=== PATIENT | male | born 1945 | race Caucasian/White ===

== ENCOUNTER 2016-06-03 10:30 | Emergency (ER) | payer MEDICARE, OTHER ==
--- NOTE | 2016-06-03 11:02 | ER Document Report ---
ED Medical Screen (RME) - General Stated Complaint: RIGHT LEG PAIN, SWELLING Notes: Patient states he has been having right leg pain and swelling for several days. Area feels warm to touch. Patient has a history of DVT in the right leg. Patient denies chest pain or shortness of breath. Patient states he has also had a couple of blood clots in the lungs. I have greeted and performed a rapid initial assessment of this patient. A comprehensive ED assessment and evaluation of the patient, analysis of test results and completion of the medical decision making process will be conducted by additional ED providers. TRAVEL OUTSIDE OF THE [place] IN LAST 30 DAYS: No - Related Data Allergies/Adverse Reactions: No Known Drug Allergies Allergy (Verified 06/03/16 10:59) Past Medical History - Past Medical History Cardiac Medical History: Reports: Hx DVT, Hx Hypercholesterolemia Endocrine Medical History: Reports: Hx Diabetes Mellitus Type 2 - borderline Past Surgical History: Reports: Hx Orthopedic Surgery - bilateral knee replacement, right rotator cuff - Immunizations Immunizations up to date: Yes Hx Diphtheria, Pertussis, Tetanus Vaccination: Yes Physical Exam - Vital signs Vitals: Temp Pulse Resp BP Pulse Ox 98.3 F 72 18 135/57 H 96 06/03/16 10:55 06/03/16 10:55 06/03/16 10:55 06/03/16 10:55 06/03/16 10:55 - Skin Notes: Mild warmth noted to right lateral lower leg, tender bulging vein medial right lower leg. Course - Vital Signs Vital signs: Temp Pulse Resp BP Pulse Ox 98.3 F 72 18 135/57 H 96 06/03/16 10:55 06/03/16 10:55 06/03/16 10:55 06/03/16 10:55 06/03/16 10:55
[2016-06-03 11:27] LABS: ABSOLUTE EOSINOPHILS # (AUTO) 0.1 10^3/uL (0.0-0.6); ABSOLUTE LYMPHOCYTES (AUTO) 2.2 10^3/uL (0.5-4.7); ABSOLUTE MONOCYTES (AUTO) 0.5 10^3/uL (0.1-1.4); ABSOLUTE NEUT (AUTO) 3.5 10^3/uL (1.7-8.2); BASOPHILS % (AUTO) 0.3 % (0-2); EOSINOPHILS % (AUTO) 1.7 % (0-6); HEMATOCRIT 36.2 % (37.9-51.0); HEMOGLOBIN 12.4 g/dL (13.5-17.0); LYMPHOCYTES % (AUTO) 34.3 % (13-45); MEAN CORPUSCULAR HEMOGLOBIN 32.1 pg (27.0-33.4); MEAN CORPUSCULAR HGB CONC 34.2 g/dL (32.0-36.0); MEAN CORPUSCULAR VOLUME 94 fl (80-97); MONOCYTES % (AUTO) 8.4 % (3-13); RED BLOOD COUNT 3.86 10^6/uL (4.35-5.55); RED CELL DISTRIBUTION WIDTH 13.7 % (11.5-14.0); SEGMENTED NEUTROPHILS % (AUTO) 55.3 % (42-78); WHITE BLOOD COUNT 6.4 10^3/uL (4.0-10.5)
[2016-06-03 11:36] LABS: PROTHROMBIN TIME 12.8 SEC (11.4-15.4)
[2016-06-03 11:38] LABS: D-DIMER 1.29 ug/mL (0.00-0.50)
[2016-06-03 11:48] LABS: ALANINE AMINOTRANSFERASE 26 U/L (21-72); ALBUMIN 3.7 g/dL (3.5-5.0); ALKALINE PHOSPHATASE 86 U/L (38-126); ANION GAP 9 (5-19); ASPARTATE AMINO TRANSFERASE 34 U/L (17-59); BILIRUBIN,DIRECT 0.1 mg/dL (0.0-0.4); BILIRUBIN,TOTAL 0.6 mg/dL (0.2-1.3); BLOOD UREA NITROGEN 15 mg/dL (7-20); CALCIUM 9.2 mg/dL (8.4-10.2); CARBON DIOXIDE 29 mmol/L (22-30); CHLORIDE 105 mmol/L (98-107); CREATININE RESULT 0.62 mg/dL (0.52-1.25); GLUCOSE 160 mg/dL (75-110); SODIUM 142.5 mmol/L (137-145); TOTAL PROTEIN 6.2 g/dL (6.3-8.2)
--- NOTE | 2016-06-03 13:34 | ER Document Report ---
ED General - General Chief Complaint: Leg Pain Stated Complaint: RIGHT LEG PAIN, SWELLING Mode of Arrival: Ambulatory Information source: Patient Notes: 70-year-old male history of DVT presents with complaints of right lower extremity edema. Patient denies any fevers or chills nausea vomiting or diarrhea. Patient notes that his right anterior tibial area has felt warm. Patient denies any chest pain shortness breath difficult to breathing. Patient was concerned about blood clots TRAVEL OUTSIDE OF THE [place] IN LAST 30 DAYS: No - HPI Onset: Last week Onset/Duration: Persistent Quality of pain: Burning Severity: Mild Pain Level: 1 Associated symptoms: Leg swelling, Other Exacerbated by: Denies Relieved by: Denies Similar symptoms previously: Yes Recently seen / treated by doctor: Yes - Related Data Allergies/Adverse Reactions: No Known Drug Allergies Allergy (Verified 06/03/16 10:59) Past Medical History - Social History Smoking Status: Unknown if Ever Smoked Cigarette use (# per day): Yes Chew tobacco use (# tins/day): No Smoking Education Provided: No Frequency of alcohol use: None Drug Abuse: None Family History: Reviewed & Not Pertinent - Past Medical History Cardiac Medical History: Reports: Hx DVT, Hx Hypercholesterolemia Endocrine Medical History: Reports: Hx Diabetes Mellitus Type 2 - borderline Renal/ Medical History: Denies: Hx Peritoneal Dialysis Past Surgical History: Reports: Hx Orthopedic Surgery - bilateral knee replacement, right rotator cuff - Immunizations Immunizations up to date: Yes Hx Diphtheria, Pertussis, Tetanus Vaccination: Yes Review of Systems - Review of Systems Notes: REVIEW OF SYSTEMS: CONSTITUTIONAL : Denies fever, chills, or sweats. Denies recent illness. EENT: Denies eye, ear, throat, or mouth pain or symptoms. Denies nasal or sinus congestion or discharge. Denies throat, tongue, or mouth swelling or difficulty swallowing. CARDIOVASCULAR: Denies chest pain. Denies palpitations or racing or irregular heart beat. Denies ankle edema. RESPIRATORY: Denies cough, cold, or chest congestion. Denies shortness of breath, difficulty breathing, or wheezing. GASTROINTESTINAL: Denies abdominal pain or distention. Denies nausea, vomiting , or diarrhea. Denies blood in vomitus, stools, or per rectum. Denies black, tarry stools. Denies constipation. GENITOURINARY: Denies difficulty urinating, painful urination, burning, frequency, blood in urine, or discharge. FEMALE GENITOURINARY: Denies vaginal bleeding, heavy or abnormal periods, irregular periods. Denies vaginal discharge or odor. MUSCULOSKELETAL: Admits to right leg ankle swelling SKIN: Denies rash, lesions or sores. HEMATOLOGIC : Denies easy bruising or bleeding. LYMPHATIC: Denies swollen, enlarged glands. NEUROLOGICAL: Denies confusion or altered mental status. Denies passing out or loss of consciousness. Denies dizziness or lightheadedness. Denies headache. Denies weakness or paralysis or loss of use of either side. Denies problems with gait or speech. Denies sensory loss, numbness, or tingling. Denies seizures. PSYCHIATRIC: Denies anxiety or stress. Denies depression, suicidal ideation, or homicidal ideation. ALL OTHER SYSTEMS REVIEWED AND NEGATIVE. Dictation was performed using [employer] voice recognition software PHYSICAL EXAMINATION: GENERAL: Well-appearing, well-nourished and in no acute distress. HEAD: Atraumatic, normocephalic. EYES: Pupils equal round and reactive to light, extraocular movements intact, sclera anicteric, conjunctiva are normal. ENT: Nares patent, oropharynx clear without exudates. Moist mucous membranes. NECK: Normal range of motion, supple without lymphadenopathy LUNGS: Breath sounds clear to auscultation bilaterally and equal. No wheezes rales or rhonchi. HEART: Regular rate and rhythm without murmurs ABDOMEN: Soft, nontender, nondistended abdomen. No guarding, no rebound. No masses appreciated. Musculoskeletal: Normal range of motion, no pitting or edema. No cyanosis. NEUROLOGICAL: Cranial nerves grossly intact. Normal speech, normal gait. Normal sensory, motor exams PSYCH: Normal mood, normal affect. SKIN: Warm, Dry, normal turgor, no rashes or lesions noted. Physical Exam - Vital signs Vitals: Temp Pulse Resp BP Pulse Ox 98.3 F 72 18 135/57 H 96 06/03/16 10:55 06/03/16 10:55 06/03/16 10:55 06/03/16 10:55 06/03/16 10:55 Course - Re-evaluation Re-evalutation: 06/03/16 19:49 Doppler was negative, patient given a vascular surgeon for follow-up otherwise patient is stable for discharge After performing a Medical Screening Examination, I estimate there is LOW risk for ACUTE CORONARY SYNDROME, RESPIRATORY FAILURE, SEPSIS OR MENINGITIS, thus I consider the discharge disposition reasonable. The patient and I have discussed the diagnosis and risks, and we agree with discharging home with close follow- up. We also discussed returning to the Emergency Department immediately if new or worsening symptoms occur. We have discussed the symptoms which are most concerning (e.g., changing or worsening pain, trouble swallowing or breathing, neck stiffness, fever) that necessitate immediate return. - Vital Signs Vital signs: Temp Pulse Resp BP Pulse Ox 98.3 F 71 16 128/62 H 99 06/03/16 10:55 06/03/16 13:52 06/03/16 13:52 06/03/16 13:52 06/03/16 13:52 - Laboratory Result Diagrams: 06/03/16 11:10 06/03/16 11:10 Laboratory results interpreted by me: 06/03/16 06/03/16 06/03/16 11:10 11:10 11:10 RBC 3.86 L Hgb 12.4 L Hct 36.2 L D-Dimer 1.29 H Glucose 160 H Total Protein 6.2 L - Diagnostic Test Radiology reviewed: Image reviewed, Reports reviewed - Report given to patient Discharge - Discharge Clinical Impression: Venous insufficiency, Right leg pain Condition: Stable Disposition: HOME, SELF-CARE Instructions: Leg Pain Nonspecific ([facility]) Referrals: THOR CASILLAS MD [ACTIVE STAFF] - Follow up tomorrow
[2016-06-03 13:53] VITALS: BP 128/62
== END 2016-06-03 13:52 | disposition home or self-care (01) ==
LOC: ER 10:30
DX: I87.2 Venous insufficiency (chronic) (peripheral) (principal); M79.604 Pain in right leg; M79.89 Other specified soft tissue disorders; R60.0 Localized edema
CPT/HCPCS: 36415; 80053; 85025; 85379; 85610; 93971; 99284

== ENCOUNTER → 2016-06-27 | Outpatient (CLI) | payer MEDICARE, OTHER ==
--- NOTE | 2016-06-27 12:13 | XCELERA REPORT ---
[address] [address] Lower Extremity Arterial Evaluation Name: CT RUELAS Hamilton Age: 70 yrs Gender: Male : 1945 Patient Status: Outpatient Patient Location: [facility] Study Date: 06/27/2016 09:01 AM Procedure: A color flow and duplex scan of the lower extremity arteries was performed bilaterally with velocity and waveform anaylsis. Reason For Study: PVD Ordering Physician: THOR RIDLEY Performed By: Chalino Field Right Side Arterial Evaluation Normal velocity and triphasic waveforms noted from the Common Femoral artery to the Popliteal artery. Then biphasic with well preserved velocity, crisp waveform to the infrageniculate vessels. 0-19% stenosis at the infrageniculate level. Ankle Brachial index is 1.23. Left Side Arterial Evaluation Normal velocity and triphasic waveforms noted from the Common Femoral artery to the Femoral artery. Then biphasic with well preserved velocity, crisp waveform to the infrageniculate vessels. 0-19% stenosis at the Popliteal level. Ankle Brachial index is 1.31. Interpretation Summary Mild hemodynamically significant lesions in the bilateral lower extremities, on duplex imaging, at rest. : THOR RIDLEY > Thor Ridley
--- NOTE | 2016-06-27 12:20 | XCELERA REPORT ---
[address] [address] Lower Extremity Venous Evaluation Name: CT RUELAS Age: 70 yrs Gender: Male : 1945 Patient Status: Outpatient Patient Location: Study Date: 06/27/2016 09:16 AM Procedure: A bilateral duplex scan of the lower extremity veins was performed. The evaluation included responses to compression and other maneuvers with patient in the supine and standing positions to assess venous insufficiency. Reason For Study: VARICOSE VEINS Ordering Physician: THOR RIDLEY Performed By: Chalino Field Right Sided Venous Evaluation Deep venous system evaluation shows patent veins with significant reflux identified. 4.4 second reflux in the CFV, 4.5 seconds reflux in the Popliteal vein. Sapheno Femoral junction:no reflux. Greater Saphenous vein, Proximal thigh: reflux: no reflux. Greater Saphenous vein, mid thigh: reflux: no reflux. Greater Saphenous vein, Distal thigh: reflux: no reflux. Greater Saphenous vein, Proximal below knee: reflux: none Greater Saphenous vein, Mid below knee: reflux: none. Greater Saphenous vein, Distal below knee: reflux: 3 seconds, 3 mm diameter. Short Saphenous vein: 5.6 second reflux, 6 mm. No significant Perforators identified. Left Sided Venous Evaluation Deep venous system evaluation shows patent veins with significant reflux identified.noreflux in the CFV, 3.4 seconds reflux in the Popliteal vein. Sapheno Femoral junction:no reflux. Greater Saphenous vein, Proximal thigh: reflux: 3.7 seconds, 5 mm diameter. Greater Saphenous vein, mid thigh: reflux: no reflux. Greater Saphenous vein, Distal thigh: reflux: no reflux. Greater Saphenous vein, Proximal below knee: reflux: 3.4 seconds, 4 mm diameter. Greater Saphenous vein, Mid below knee: reflux: 4.5 seconds, 4 mm diameter. Greater Saphenous vein, Distal below knee: reflux: 4.2 seconds, 3 mm diameter. No significant Perforators identified. Interpretation Summary No duplex evidence of DVT or obstruction in the bilateral lower extremities. Bilateral deep and superficial reflux, as noted. : THOR RIDLEY > Thor Ridley
== END ==
LOC: SP 08:13
PROVIDERS: ATTEND Surgery
DX: I73.9 Peripheral vascular disease, unspecified (principal); I83.811 Varicose veins of right lower extremity with pain
CPT/HCPCS: 93925; 93970

== ENCOUNTER 2016-07-01 15:16 | Emergency (ER) | payer MEDICARE, OTHER ==
--- NOTE | 2016-07-01 16:18 | ER Document Report ---
ED Medical Screen (RME) - General Chief Complaint: Foot Pain Stated Complaint: FOOT PAIN Notes: 70-year-old male patient reports cutting the right ball of his foot on porcelain when changing the toilet. He reports today there was some redness and tenderness and swelling in the region of the laceration. He took an amoxicillin he had at home this morning. He does have diabetes and some venous insufficiency. I have greeted and performed a rapid initial assessment of this patient. A comprehensive ED assessment and evaluation of the patient, analysis of test results and completion of the medical decision making process will be conducted by additional ED providers. TRAVEL OUTSIDE OF THE [place] IN LAST 30 DAYS: No - Related Data Allergies/Adverse Reactions: No Known Drug Allergies Allergy (Verified 07/01/16 15:55) Past Medical History - Past Medical History Cardiac Medical History: Reports: Hx DVT, Hx Hypercholesterolemia Endocrine Medical History: Reports: Hx Diabetes Mellitus Type 2 - borderline Renal/ Medical History: Denies: Hx Peritoneal Dialysis Past Surgical History: Reports: Hx Orthopedic Surgery - bilateral knee replacement, right rotator cuff - Immunizations Immunizations up to date: Yes Hx Diphtheria, Pertussis, Tetanus Vaccination: Yes Physical Exam - Vital signs Vitals: Temp Pulse Resp BP Pulse Ox 98.5 F 95 18 141/70 H 94 07/01/16 15:21 07/01/16 15:21 07/01/16 15:21 07/01/16 15:21 07/01/16 15:21 Course - Vital Signs Vital signs: Temp Pulse Resp BP Pulse Ox 98.5 F 95 18 141/70 H 94 07/01/16 15:21 07/01/16 15:21 07/01/16 15:21 07/01/16 15:21 07/01/16 15:21
--- NOTE | 2016-07-01 17:16 | ER Document Report ---
HPI - HPI Patient complains to provider of: LACERATION RIGHT FOOT Onset: Other - MONDAY Onset/Duration: Sudden Quality of pain: Throbbing Severity: Moderate Pain Level: 3 Context: Patient stepped on a piece of porcelain trying to turn commode water off Monday evening. Bleeding controlled. Associated Symptoms: None Exacerbated by: Walking Relieved by: Remaining still Similar symptoms previously: No Recently seen / treated by doctor: No - ROS ROS below otherwise negative: Yes Systems Reviewed and Negative: Yes All other systems reviewed and negative - CONSTITUTIONAL Constitutional: DENIES: Fever - EENT EENT: DENIES: Congestion - NEURO Neurology: DENIES: Headache - CARDIOVASCULAR Cardiovascular: DENIES: Chest pain - RESPIRATORY Respiratory: DENIES: Trouble Breathing - GASTROINTESTINAL Gastrointestinal: DENIES: Abdominal Pain - URINARY Urinary: DENIES: Dysuria - MUSCULOSKELETAL Musculoskeletal: REPORTS: Extremity pain - BOTTOM OF RIGHT FOOT - DERM Skin Color: Normal, Flushed Skin Problems: Laceration - BOTTOM OF RIGHT FOOT Past Medical History - General Information source: Patient - Social History Smoking Status: Never Smoker Chew tobacco use (# tins/day): No Frequency of alcohol use: None Drug Abuse: None Lives with: Spouse/Significant other Family History: Reviewed & Not Pertinent Patient has suicidal ideation: No Patient has homicidal ideation: No - Past Medical History Cardiac Medical History: Reports: Hx DVT, Hx Hypercholesterolemia Endocrine Medical History: Reports: Hx Diabetes Mellitus Type 2 - borderline Renal/ Medical History: Denies: Hx Peritoneal Dialysis Past Surgical History: Reports: Hx Orthopedic Surgery - bilateral knee replacement, right rotator cuff - Immunizations Immunizations up to date: Yes Hx Diphtheria, Pertussis, Tetanus Vaccination: Yes Vertical Provider Document - CONSTITUTIONAL Agree With Documented VS: Yes Exam Limitations: No Limitations General Appearance: WD/WN, No Apparent Distress - INFECTION CONTROL TRAVEL OUTSIDE OF THE [place] IN LAST 30 DAYS: No - HEENT HEENT: Atraumatic, Normocephalic - RESPIRATORY Respiratory: Breath Sounds Normal, No Respiratory Distress O2 Sat by Pulse Oximetry: 94 - CARDIOVASCULAR Cardiovascular: Regular Rate, Regular Rhythm - MUSCULOSKELETAL/EXTREMETIES Musculoskeletal/Extremeties: MAEW, Tender - BASE OF RIGHT GREAT TOE/BALL OF FOOT , No Edema - NEURO Level of Consciousness: Awake, Alert, Appropriate - DERM Integumentary: Warm, Dry, Laceration Notes: V-shaped, avulsed laceration already in the healing process noted to karson brunner right foot under the right great toe. No signs and symptoms of infection. Tender to touch. Neurovascular and sensation is intact to toe. Able to move all toes without difficulty. Course - Re-evaluation Re-evalutation: 07/01/16 17:16 X-ray negative for fracture or foreign body and discussed with patient. 07/01/16 17:21 Wound cleansed with soap and water, bacitracin and nonstick dressing applied. - Vital Signs Vital signs: Temp Pulse Resp BP Pulse Ox 98.5 F 95 18 141/70 H 94 07/01/16 15:21 07/01/16 15:21 07/01/16 15:21 07/01/16 15:21 07/01/16 15:21 Discharge - Discharge Clinical Impression: Laceration of right foot excluding toes without complication Qualifiers: Encounter type: initial encounter Qualified Code(s): S91.311A - Laceration without foreign body, right foot, initial encounter Condition: Good Disposition: HOME, SELF-CARE Instructions: Antibiotic Ointment Protection ([facility]), Soap Cleansing ([facility]), Prophylactic Antibiotic ([facility]), Laceration Care ([facility]) Additional Instructions: Keep wound clean and dry. Do not put Betadine on the wound, but apply bacitracin and nonstick dressing. Follow-up with ear primary care doctor on Monday for recheck. Take antibiotics as prescribed. Return as needed. Prescriptions: Cephalexin [Cephalexin 500 MG Capsule] 1 cap PO QID #28 capsule
[2016-07-01 18:22] VITALS: BP 145/82
== END 2016-07-01 18:21 | disposition home or self-care (01) ==
LOC: ER 15:16
DX: S91.311A Laceration without foreign body, right foot, initial encounter (principal); W22.8XXA Striking against or struck by other objects, initial encounter; Y92.002 Bathroom of unspecified non-institutional (private) residence as the place of occurrence of the external cause; E78.00 Pure hypercholesterolemia, unspecified; E11.9 Type 2 diabetes mellitus without complications; Z86.718 Personal history of other venous thrombosis and embolism; Z96.653 Presence of artificial knee joint, bilateral
CPT/HCPCS: 99283

== ENCOUNTER 2017-03-22 13:32 | Emergency (ER) | payer MEDICARE, OTHER ==
[2017-03-22] MEDS ORDERED: LIDOCAINE 5% (700 MG) TRANSDERMAL ADH..PATCH TP ONE (14:37)
--- NOTE | 2017-03-22 14:39 | ER Document Report ---
HPI - HPI Patient complains to provider of: fall, rib injury Onset: Other - 2 days ago Onset/Duration: Persistent, Better Quality of pain: Achy Pain Level: 2 Context: Patient states that he was working on his bed frame in his house and slipped landing on his left lateral side on his ribs. Patient states that he has had left rib tenderness since the fall. Patient denies having any pain prior to the fall. Patient states the pain has gradually been getting better over the past several days although has not completely resolved. Patient denies any dyspnea nausea, or vomiting. Patient denies any back pain. Patient without any abdominal tenderness. Patient denies any head injury. Associated Symptoms: Chest pain - Left rib tenderness. denies: Body/muscle aches, Nonproductive cough, Productive cough, Fever, Shortness of breath Exacerbated by: Movement Relieved by: Remaining still Similar symptoms previously: No Recently seen / treated by doctor: No - ROS ROS below otherwise negative: Yes Systems Reviewed and Negative: Yes All other systems reviewed and negative - CONSTITUTIONAL Constitutional: DENIES: Fever, Chills - NEURO Neurology: DENIES: Weakness - CARDIOVASCULAR Cardiovascular: REPORTS: Chest pain - RESPIRATORY Respiratory: DENIES: Trouble Breathing, Coughing - GASTROINTESTINAL Gastrointestinal: DENIES: Abdominal Pain, Nausea, Patient vomiting - URINARY Urinary: DENIES: Dysuria - MUSCULOSKELETAL Musculoskeletal: DENIES: Extremity pain, Back Pain, Neck Pain - DERM Skin Color: Normal Skin Problems: None Past Medical History - General Information source: Patient - Social History Smoking Status: Former Smoker Chew tobacco use (# tins/day): No Frequency of alcohol use: None Drug Abuse: None Occupation: Retired Family History: Reviewed & Not Pertinent Patient has suicidal ideation: No Patient has homicidal ideation: No - Past Medical History Cardiac Medical History: Reports: Hx DVT, Hx Hypercholesterolemia Endocrine Medical History: Reports: Hx Diabetes Mellitus Type 2 - borderline Renal/ Medical History: Denies: Hx Peritoneal Dialysis Past Surgical History: Reports: Hx Coronary Artery Bypass Graft, Hx Orthopedic Surgery - bilateral knee replacement, right rotator cuff - Immunizations Immunizations up to date: Yes Hx Diphtheria, Pertussis, Tetanus Vaccination: Yes Vertical Provider Document - CONSTITUTIONAL Agree With Documented VS: Yes Exam Limitations: No Limitations General Appearance: WD/WN, No Apparent Distress - INFECTION CONTROL TRAVEL OUTSIDE OF THE [place] IN LAST 30 DAYS: No - HEENT HEENT: Atraumatic, Normocephalic - NECK Neck: Normal Inspection, Supple. negative: Lymphadenopathy-Left, Lymphadenopathy-Right - RESPIRATORY Respiratory: Breath Sounds Normal, No Respiratory Distress. negative: Chest Non -Tender - Left lateral rib tenderness, no crepitus, no subcutaneous emphysema, Rales, Rhonchi, Wheezing - CARDIOVASCULAR Cardiovascular: Regular Rate, Regular Rhythm, No Murmur Pulses: Normal: Radial - GI/ABDOMEN Gastrointestinal: Abdomen Soft, Abdomen Non-Tender, No Organomegaly - BACK Back: Normal Inspection. negative: CVA Tenderness-Right, CVA Tenderness-Left - MUSCULOSKELETAL/EXTREMETIES Musculoskeletal/Extremeties: RACHELLE HERNANDEZ - NEURO Level of Consciousness: Awake, Alert, Appropriate Motor/Sensory: No Motor Deficit - DERM Integumentary: Warm, Dry, No Rash Course - Re-evaluation Re-evalutation: 03/22/17 16:[address] Bose who recommends adding on labs including cardiac enzyme testing. Reviewed patient's EKG. 03/22/17 17:30 Patient denies any rib tenderness at this time. Patient states that topical lidocaine patch resolved his pain. Patient does have reproducible chest wall tenderness with palpation of left lateral sixth rib area. Consulted with Dr. Bose regarding patient's cardiac enzyme test results. Recommends repeating cardiac enzymes at 7 PM. Does not recommend any advanced CT imaging of chest area at this time. Patient without any back pain or dyspnea symptoms. Pt took aspirin 325 mg at home prior to arrival. 03/22/17 17:48 Patient resting comfortably, continues to deny any tenderness. Patient again states that lidocaine topical patch completely resolved his pain symptoms. 03/22/17 20:24 Patient with indeterminate elevated troponin on repeat draw. Discussed results with Dr. Bose. Patient without any previous cardiac testing here to compare results with today. Dr. Bose advises having patient follow up with his refining equipment operator tomorrow for recheck and advises discharge at this time. Dr Bose does not feel that patient is having any ACS or ID at this time and recommends follow-up on an outpatient basis with his refining equipment operator. Discussed treatment options with patient, offered to speak with hospitalist for possible admission to definitively rule out any cardiac source for his indeterminate troponin elevation. Patient states that he prefers to be discharged tonight and does not want to stay for any additional testing. Patient reports that he will follow-up with his primary doctor as well as his refining equipment operator. Patient plans to buy topical lidocaine patches to treat his pain symptoms as this seemed to help his symptoms effectively tonight. Patient encouraged to return immediately for any new or worsening symptoms, or if he would like to continue with his diagnostic evaluation. 03/22/17 20:29 Patient within erroneously recorded blood pressure in the 60s systolically, blood pressure rechecked, patient not hypotensive. - Laboratory Result Diagrams: 03/22/17 16:35 03/22/17 16:35 Laboratory results interpreted by me: 03/22/17 20:24 Labs- Entire Visit 03/22/17 03/22/17 03/22/17 16:35 16:35 16:35 WBC 7.5 RBC 4.40 Hgb 13.7 Hct 40.7 MCV 92 MCH 31.2 MCHC 33.7 RDW 15.5 H Plt Count 190 Seg Neutrophils % 49.8 Lymphocytes % 39.2 Monocytes % 8.4 Eosinophils % 2.2 Basophils % 0.4 Absolute Neutrophils 3.7 Absolute Lymphocytes 2.9 Absolute Monocytes 0.6 Absolute Eosinophils 0.2 Absolute Basophils 0.0 Sodium 141.5 Potassium 4.2 Chloride 105 Carbon Dioxide 27 Anion Gap 10 BUN 18 Creatinine 0.78 Est GFR ( Amer) > 60 Est GFR (Non-Af Amer) > 60 Glucose 82 Calcium 9.4 Total Bilirubin 0.6 Direct Bilirubin 0.2 Neonat Total Bilirubin Not Reportable Neonat Direct Bilirubin Not Reportable Neonat Indirect Bili Not Reportable AST 40 ALT 34 Alkaline Phosphatase 85 Creatine Kinase 330 H CK-MB (CK-2) 7.43 H Troponin I 0.061 Total Protein 6.3 Albumin 3.8 03/22/17 03/22/17 18:55 18:55 WBC RBC Hgb Hct MCV MCH MCHC RDW Plt Count Seg Neutrophils % Lymphocytes % Monocytes % Eosinophils % Basophils % Absolute Neutrophils Absolute Lymphocytes Absolute Monocytes Absolute Eosinophils Absolute Basophils Sodium Potassium Chloride Carbon Dioxide Anion Gap BUN Creatinine Est GFR ( Amer) Est GFR (Non-Af Amer) Glucose Calcium Total Bilirubin Direct Bilirubin Neonat Total Bilirubin Neonat Direct Bilirubin Neonat Indirect Bili AST ALT Alkaline Phosphatase Creatine Kinase 306 H CK-MB (CK-2) 7.36 H Troponin I 0.062 Total Protein Albumin - Diagnostic Test Radiology reviewed: Reports reviewed Discharge - Discharge Clinical Impression: Rib injury, Chest wall pain, Elevated troponin Condition: Stable Disposition: HOME, SELF-CARE Instructions: Acetaminophen, Chest Wall Pain ([facility]), Chest Pain of Unclear Cause ([facility]) Additional Instructions: Return immediately for any new or worsening symptoms or call 911 if your symptoms become severe Followup with your primary care provider, call tomorrow to make a followup appointment Follow-up with your refining equipment operator, call their office tomorrow for follow-up You may use [id number] lidocaine patches topically to the tender area Referrals: SNEHA GREGORY MD [Primary Care Provider] - Follow up as needed ASTRID WARD PA [PHYSICIAN PEN MAKER] - Follow up tomorrow ALEXANDRA ORLANDO MD [NO LOCAL MD] - Follow up tomorrow
--- NOTE | 2017-03-22 16:44 | RADIOLOGY REPORT (SQ) ---
EXAM DESCRIPTION: RIBS LEFT W/PA CHEST COMPLETED DATE/TIME: 03/22/2017 4:22 pm REASON FOR STUDY: fall, lat rib pain COMPARISON: None. TECHNIQUE: Frontal view of the chest and additional views of the left ribs acquired. NUMBER OF VIEWS: Five view. LIMITATIONS: None. FINDINGS: FRONTAL CXR: No pneumothorax. No pleural effusion. No atelectasis or infiltrates. RIBS: No displaced rib fractures. No lytic or blastic bony lesions. OTHER: No other significant finding. IMPRESSION: NO PNEUMOTHORAX. NO DISPLACED RIB FRACTURES. COMMENT: SITE OF TRAUMA/COMPLAINT MARKED/STAMP COMPLETED: NO. TECHNICAL DOCUMENTATION: JOB ID: [id number] [employer]- All Rights Reserved
[2017-03-22 16:51] LABS: ABSOLUTE EOSINOPHILS # (AUTO) 0.2 10^3/uL (0.0-0.6); ABSOLUTE LYMPHOCYTES (AUTO) 2.9 10^3/uL (0.5-4.7); ABSOLUTE MONOCYTES (AUTO) 0.6 10^3/uL (0.1-1.4); ABSOLUTE NEUT (AUTO) 3.7 10^3/uL (1.7-8.2); BASOPHILS % (AUTO) 0.4 % (0-2); EOSINOPHILS % (AUTO) 2.2 % (0-6); HEMATOCRIT 40.7 % (37.9-51.0); HEMOGLOBIN 13.7 g/dL (13.5-17.0); LYMPHOCYTES % (AUTO) 39.2 % (13-45); MEAN CORPUSCULAR HEMOGLOBIN 31.2 pg (27.0-33.4); MEAN CORPUSCULAR HGB CONC 33.7 g/dL (32.0-36.0); MEAN CORPUSCULAR VOLUME 92 fl (80-97); MONOCYTES % (AUTO) 8.4 % (3-13); PLATELET COUNT 190 10^3/uL (150-450); RED CELL DISTRIBUTION WIDTH 15.5 % (11.5-14.0); SEGMENTED NEUTROPHILS % (AUTO) 49.8 % (42-78); TOTAL CELLS COUNTED % (AUTO) 100 %; WHITE BLOOD COUNT 7.5 10^3/uL (4.0-10.5)
[2017-03-22 17:09] LABS: ALANINE AMINOTRANSFERASE 34 U/L (21-72); ALBUMIN 3.8 g/dL (3.5-5.0); ALKALINE PHOSPHATASE 85 U/L (38-126); ANION GAP 10 (5-19); ASPARTATE AMINO TRANSFERASE 40 U/L (17-59); BILIRUBIN,DIRECT 0.2 mg/dL (0.0-0.4); BILIRUBIN,TOTAL 0.6 mg/dL (0.2-1.3); BLOOD UREA NITROGEN 18 mg/dL (7-20); CALCIUM 9.4 mg/dL (8.4-10.2); CARBON DIOXIDE 27 mmol/L (22-30); CHLORIDE 105 mmol/L (98-107); CREATINE KINASE 330 U/L (55-170); GLUCOSE 82 mg/dL (75-110); POTASSIUM 4.2 mmol/L (3.6-5.0); SODIUM 141.5 mmol/L (137-145); TOTAL PROTEIN 6.3 g/dL (6.3-8.2)
[2017-03-22 17:21] LABS: CREATINE KINASE MB 7.43 ng/mL (<4.55)
[2017-03-22 17:23] LABS: TROPONIN I 0.061 ng/mL
--- NOTE | 2017-03-22 18:30 | EKG REPORT ---
SEVERITY:- ABNORMAL ECG - SINUS RHYTHM RBBB AND LAFB : Confirmed by: Jeffrey Leonard MD 22-Mar-2017 18:29:59
[2017-03-22 19:37] LABS: CREATINE KINASE MB 7.36 ng/mL (<4.55); TROPONIN I 0.062 ng/mL
[2017-03-22 20:52] VITALS: BP 129/77
== END 2017-03-22 20:58 | disposition home or self-care (01) ==
LOC: ER 13:32
DX: S29.9XXA Unspecified injury of thorax, initial encounter (principal); W01.190A Fall on same level from slipping, tripping and stumbling with subsequent striking against furniture, initial encounter; Y93.89 Activity, other specified; Y92.009 Unspecified place in unspecified non-institutional (private) residence as the place of occurrence of the external cause; R07.89 Other chest pain; R74.8 Abnormal levels of other serum enzymes; Z86.718 Personal history of other venous thrombosis and embolism; Z95.1 Presence of aortocoronary bypass graft; Z87.891 Personal history of nicotine dependence
CPT/HCPCS: 36415; 80053; 82550; 82553; 84484; 85025; 93005; 93010; 99284

== ENCOUNTER 2017-08-14 08:48 | Emergency (ER) | payer MEDICARE, OTHER ==
[2017-08-14 08:54] VITALS: BP 110/59
[2017-08-14] MEDS ORDERED: ACETAMINOPHEN 325 MG TABLET PO ONE (09:14)
--- NOTE | 2017-08-14 09:15 | ER Document Report ---
HPI - HPI Patient complains to provider of: Arm injury Onset: Yesterday Onset/Duration: Sudden Quality of pain: Achy Pain Level: 2 Context: Patient states that he was walking and tripped over a loose shoestring. Patient attempted to catch his self prior to falling. Patient with abrasions to left forearm, elbow. Patient complains of left wrist pain and swelling. Patient is right-hand dominant. Associated Symptoms: Other - Left wrist injury Exacerbated by: Movement Relieved by: Denies Similar symptoms previously: No Recently seen / treated by doctor: No - ROS ROS below otherwise negative: Yes Systems Reviewed and Negative: Yes All other systems reviewed and negative - CONSTITUTIONAL Constitutional: DENIES: Fever - NEURO Neurology: DENIES: Headache - CARDIOVASCULAR Cardiovascular: DENIES: Chest pain - RESPIRATORY Respiratory: DENIES: Trouble Breathing, Coughing - GASTROINTESTINAL Gastrointestinal: DENIES: Nausea - MUSCULOSKELETAL Musculoskeletal: REPORTS: Extremity pain, Swelling - DERM Skin Problems: Abrasion Past Medical History - General Information source: Patient - Social History Smoking Status: Never Smoker Frequency of alcohol use: None Drug Abuse: None Lives with: Family Family History: Reviewed & Not Pertinent - Past Medical History Cardiac Medical History: Reports: Hx Coronary Artery Disease, Hx DVT, Hx Hypercholesterolemia Denies: Hx Heart Attack, Hx Hypertension Pulmonary Medical History: Denies: Hx Asthma, Hx Bronchitis, Hx COPD, Hx Pneumonia Neurological Medical History: Denies: Hx Cerebrovascular Accident, Hx Seizures Endocrine Medical History: Reports: Hx Diabetes Mellitus Type 2 - borderline Renal/ Medical History: Denies: Hx Peritoneal Dialysis Musculoskeltal Medical History: Reports Hx Arthritis Past Surgical History: Reports: Hx Cardiac Surgery - bypass, Hx Coronary Artery Bypass Graft, Hx Orthopedic Surgery - bilateral knee replacement, right rotator cuff - Immunizations Immunizations up to date: Yes Hx Diphtheria, Pertussis, Tetanus Vaccination: Yes Hx Pneumococcal Vaccination: 03/13/17 Vertical Provider Document - CONSTITUTIONAL Agree With Documented VS: Yes Exam Limitations: No Limitations General Appearance: WD/WN, No Apparent Distress - INFECTION CONTROL TRAVEL OUTSIDE OF THE [place] IN LAST 30 DAYS: No - HEENT HEENT: Atraumatic, Normocephalic - NECK Neck: Normal Inspection - RESPIRATORY Respiratory: No Respiratory Distress - CARDIOVASCULAR Pulses: Normal: Radial - BACK Back: Normal Inspection - MUSCULOSKELETAL/EXTREMETIES Musculoskeletal/Extremeties: MAEW, Tender - Left wrist tenderness over medial and lateral aspects with positive edema and deformity, Edema - NEURO Level of Consciousness: Awake, Alert, Appropriate Motor/Sensory: No Motor Deficit - DERM Integumentary: Warm, Dry Notes: Multiple abrasions to left elbow and forearm Course - Re-evaluation Re-evalutation: 08/14/17 09:[address] Box regarding immobilization given both scaphoid fracture as well as distal radius fracture., Dr Box to bedside. Advises placement of a sugar tong splint. Patient already has established relationship with Dr. Taylor locally. Patient encouraged to follow-up with Dr. Taylor for further management of his fracture. 08/14/17 09:47 Patient states that he took tramadol at home for his pain but denies any improvement of his pain symptoms. Patient requesting different prescription for pain relief. Patient educated at length importance of not combining tramadol with hydrocodone. Patient also advised not to take his Klonopin with the tramadol were the hydrocodone. Patient verbalized understanding. Patient has his own sling and prefers to wear his own with the splint in place. - Vital Signs Vital signs: Temp Pulse Resp BP Pulse Ox 98.8 F 77 110/59 L 93 08/14/17 08:53 08/14/17 08:53 08/14/17 08:53 08/14/17 08:53 - Diagnostic Test Radiology reviewed: Pending, Image reviewed Procedures - Immobilization Left Wrist Pre-Proc Neuro Vasc Exam: Normal Immobilizer type: Sugar tong Performed by: PCT Post-Proc Neuro Vasc Exam: Normal Alignment checked and good: Yes Discharge - Discharge Clinical Impression: Scaphoid fracture of wrist Qualifiers: Encounter type: initial encounter Scaphoid bone location: middle third Fracture type: closed Fracture alignment: displaced Laterality: left Qualified Code(s): S62.022A - Displaced fracture of middle third of navicular [scaphoid] bone of left wrist, initial encounter for closed fracture Distal radius fracture, left Qualifiers: Encounter type: initial encounter Fracture type: closed Fracture morphology: unspecified fracture morphology Qualified Code(s): S52.502A - Unspecified fracture of the lower end of left radius, initial encounter for closed fracture Distal end of ulna fracture, closed Qualifiers: Encounter type: initial encounter Fracture morphology: unspecified fracture morphology Laterality: left Qualified Code(s): S52.602A - Unspecified fracture of lower end of left ulna, initial encounter for closed fracture Condition: Stable Disposition: HOME, SELF-CARE Instructions: Fracture ([facility]), Ice & Elevation ([facility]), Oral Narcotic Medication ( [facility]), Splint Precautions ([facility]) Additional Instructions: Return immediately for any new or worsening symptoms Followup with your primary care provider, call tomorrow to make a followup appointment Follow-up with orthopedics for further evaluation, call today for an appointment Prescriptions: Hydrocodone/Acetaminophen [Shirley 5-325 Tablet] 1 each PO Q6 PRN #15 tablet PRN Reason: Referrals: TERRI GAONA PA-C [Primary Care Provider] - Follow up as needed TREVOR TAYLOR DO [ACTIVE STAFF] - Follow up tomorrow
--- NOTE | 2017-08-14 09:56 | RADIOLOGY REPORT (SQ) ---
EXAM DESCRIPTION: WRIST LEFT 3 VIEWS COMPLETED DATE/TIME: 08/14/2017 9:38 am REASON FOR STUDY: fall, left wrist pain COMPARISON: None. NUMBER OF VIEWS: Three views. TECHNIQUE: AP, lateral, and oblique radiographic images acquired of the left wrist. LIMITATIONS: None. FINDINGS: MINERALIZATION: Normal. BONES: Intra-articular comminuted distal radius fracture. Nondisplaced fracture through the body of the scaphoid. A non-displaced ulnar styloid fracture. SOFT TISSUES: Moderate to marked soft tissue swelling. No foreign body. OTHER: Chondrocalcinosis in the radial carpal joint and triangular fibrocartilage. Scaphotrapezial moderate to moderate severe joint narrowing. Several fragments in the region of the greater multangu lar bone may be related to prior trauma, congenital absence or surgery. Marked distal interphalangeal joint space fifth digit. Scattered subchondral cystic changes in the carpal bones and visualized me tacarpal phalangeal joints of the hand. IMPRESSION: 1 Comminuted intra-articular distal radius fracture. 2 Non-displaced fracture body of the scaphoid. 3. Non-displaced ulnar styloid fracture. 4 moderate to moderate severe chondrocalcinosis in the region of the radiocarpal joint and triangular fibrocartilage. 5. Moderate to severe to marked arthritic changes distal interphalangeal joint fifth digit and scapho trapezial joint. 6 additional findings as above. COMMENT: 1. The results of this examination were discussed with the emergency department provider on 08/14/2017 at 0947 hours. TECHNICAL DOCUMENTATION: JOB ID: [id number] [employer]- All Rights Reserved Reading location - IP/workstation name: [email or web address]
== END 2017-08-14 09:59 | disposition home or self-care (01) ==
LOC: ER 08:48
PROC: 2W3DX1Z Immobilization of Left Lower Arm using Splint (ICD-10-PCS; principal; 2017-08-14)
DX: S62.022A Displaced fracture of middle third of navicular [scaphoid] bone of left wrist, initial encounter for closed fracture (principal); S52.502A Unspecified fracture of the lower end of left radius, initial encounter for closed fracture; S52.602A Unspecified fracture of lower end of left ulna, initial encounter for closed fracture; S50.312A Abrasion of left elbow, initial encounter; M25.532 Pain in left wrist; M79.89 Other specified soft tissue disorders; W01.0XXA Fall on same level from slipping, tripping and stumbling without subsequent striking against object, initial encounter; I25.10 Atherosclerotic heart disease of native coronary artery without angina pectoris; E11.9 Type 2 diabetes mellitus without complications
CPT/HCPCS: 99283; 73110; 29125; A9270

== ENCOUNTER 2017-09-05 09:10 | Emergency (ER) | payer MEDICARE, OTHER ==
[2017-09-05 10:26] LABS: ANION GAP 10 (5-19); BLOOD UREA NITROGEN 17 mg/dL (7-20); CALCIUM 9.2 mg/dL (8.4-10.2); CARBON DIOXIDE 29 mmol/L (22-30); CHLORIDE 104 mmol/L (98-107); CREATINE KINASE 204 U/L (55-170); GLUCOSE 103 mg/dL (75-110); POTASSIUM 4.6 mmol/L (3.6-5.0); SODIUM 142.9 mmol/L (137-145)
[2017-09-05] MEDS ORDERED: LIDOCAINE 5% (700 MG) TRANSDERMAL ADH..PATCH TP ONE (12:51)
--- NOTE | 2017-09-05 12:52 | ER Document Report ---
ED General - General Chief Complaint: Leg Pain Stated Complaint: LEG PAIN Time Seen by Provider: 09/05/17 09:36 TRAVEL OUTSIDE OF THE [place] IN LAST 30 DAYS: No - HPI Patient complains to provider of: Right lower extremity pain and swelling Notes: Patient coming in for evaluation right lower leg pain and swelling states history of blood clots in the past. Patient states no trauma no increase physical activity states pain on the right calf and the lateral portion. Patient denies any fevers chills nausea vomiting recommended come to ER for rule out blood clot by PCP - Related Data Allergies/Adverse Reactions: OYSTERS Allergy (Uncoded 09/05/17 09:11) Past Medical History - Social History Smoking Status: Never Smoker Chew tobacco use (# tins/day): No Frequency of alcohol use: None Drug Abuse: None Family History: Reviewed & Not Pertinent Patient has suicidal ideation: No Patient has homicidal ideation: No - Past Medical History Cardiac Medical History: Reports: Hx Coronary Artery Disease, Hx DVT, Hx Hypercholesterolemia Denies: Hx Heart Attack, Hx Hypertension Pulmonary Medical History: Denies: Hx Asthma, Hx Bronchitis, Hx COPD, Hx Pneumonia Neurological Medical History: Denies: Hx Cerebrovascular Accident, Hx Seizures Endocrine Medical History: Reports: Hx Diabetes Mellitus Type 2 - borderline Renal/ Medical History: Denies: Hx Peritoneal Dialysis Musculoskeltal Medical History: Reports Hx Arthritis Past Surgical History: Reports: Hx Cardiac Surgery - bypass, Hx Coronary Artery Bypass Graft, Hx Orthopedic Surgery - bilateral knee replacement, right rotator cuff - Immunizations Immunizations up to date: Yes Hx Diphtheria, Pertussis, Tetanus Vaccination: Yes Hx Pneumococcal Vaccination: 03/13/17 Review of Systems - Review of Systems Constitutional: No symptoms reported EENT: No symptoms reported Cardiovascular: No symptoms reported Respiratory: No symptoms reported Gastrointestinal: No symptoms reported Genitourinary: No symptoms reported Male Genitourinary: No symptoms reported Musculoskeletal: Other - Leg pain Skin: No symptoms reported Hematologic/Lymphatic: No symptoms reported Neurological/Psychological: No symptoms reported -: Yes All other systems reviewed and negative Physical Exam - Vital signs Vitals: Temp Pulse Resp BP Pulse Ox 98.1 F 70 18 114/71 96 09/05/17 09:19 09/05/17 09:19 09/05/17 09:19 09/05/17 09:19 09/05/17 09:19 Interpretation: Normal - General General appearance: Appears well, Alert - HEENT Head: Normocephalic, Atraumatic Eyes: Normal Pupils: PERRL - Respiratory Respiratory status: No respiratory distress Chest status: Nontender Breath sounds: Normal Chest palpation: Normal - Cardiovascular Rhythm: Regular Heart sounds: Normal auscultation Murmur: No - Abdominal Inspection: Normal Distension: No distension Bowel sounds: Normal Tenderness: Nontender Organomegaly: No organomegaly - Back Back: Normal, Nontender - Extremities General upper extremity: Nontender, Normal color, Normal ROM, Normal temperature. No: Normal inspection - Brace in place on the left upper extremity normal for the patient General lower extremity: Nontender, Normal color, Normal ROM, Normal temperature , Normal weight bearing. No: Normal inspection - Brace in place and left lower extremity normal per patient, Melissa's sign - Neurological Neuro grossly intact: Yes Cognition: Normal Orientation: AAOx4 [place] Coma Scale Eye Opening: Spontaneous [place] Coma Scale Verbal: Oriented [place] Coma Scale Motor: Obeys Commands [place] Coma Scale Total: 15 Speech: Normal Motor strength normal: LUE, RUE, LLE, RLE Sensory: Normal - Psychological Associated symptoms: Normal affect, Normal mood - Skin Skin Temperature: Warm Skin Moisture: Dry Skin Color: Normal Course - Re-evaluation Re-evalutation: 09/05/17 15:21 Ultrasound is not revealing signs superficial or deep thrombosis. Other etiologies for the patient's pain could be muscle strain or sprain. Recommend patient follow-up primary care physician patient was recommended to use Tylenol Motrin for pain control along lidocaine patches. Patient agrees this plan - Vital Signs Vital signs: Temp Pulse Resp BP Pulse Ox 98.1 F 70 20 121/65 99 09/05/17 13:01 09/05/17 09:19 09/05/17 13:01 09/05/17 13:01 09/05/17 13:01 - Laboratory Result Diagrams: 09/05/17 09:46 Laboratory results interpreted by me: 09/05/17 09:46 Creatine Kinase 204 H Discharge - Discharge Clinical Impression: Right leg pain Condition: Good Disposition: HOME, SELF-CARE Instructions: Leg Pain Nonspecific ([facility]) Additional Instructions: Your ultrasound laboratory studies not show any significant findings. Would recommend taking Tylenol or Motrin for your pain control. Also recommend trying the lidocaine patches that are available [id number]. If you do receive good pain relief in the past and we gave you here today he can ask your local pharmacist about [id number] lidocaine options. Follow-up with your primary care physician in 1-2 weeks Referrals: RENE CONNER MD [Primary Care Provider] - Follow up as needed
[2017-09-05 13:12] VITALS: BP 121/65
--- NOTE | 2017-09-05 13:34 | RADIOLOGY REPORT (SQ) ---
EXAM DESCRIPTION: VENOUS UNILATERAL LOWER COMPLETED DATE/TIME: 09/05/2017 1:10 pm REASON FOR STUDY: right calf pain hx of clots COMPARISON: 08/04/2014, 06/03/2016 right lower extremity venous Doppler TECHNIQUE: Dynamic and static shukla scale and color images acquired of the right leg venous system. S elected spectral images acquired with additional compression and augmentation maneuvers. The contrala teral common femoral vein and saphenofemoral junction were also imaged. Images stored on PACS. LIMITATIONS: None. FINDINGS: RIGHT COMMON FEMORAL: Normal phasicity, compression and augmentation. No visualized echogenic material on g ray scale. No defects on color images. FEMORAL: Normal compression and augmentation. No visualized echogenic material on shukla scale. No defe cts on color images. POPLITEAL: Normal compression, augmentation. No visualized echogenic material on shukla scale. No defec ts on color images. CALF VESSELS: Normal compression, augmentation. No visualized echogenic material on shukla scale. No de fects on color images. GSV and SSV: Normal compression, augmentation. No visualized echogenic material on shukla scale. No def ects on color images. ANY DEEP VENOUS INSUFFICIENCY: There is reflux during Valsalva in the superficial femoral vein and po pliteal vein. ANY EVIDENCE OF POPLITEAL CYST: No. OTHER: No other significant finding. LEFT COMMON FEMORAL VEIN AND SAPHENOFEMORAL JUNCTION: Normal phasicity, compression and augmentation. No visualized echogenic material on shukla scale. No de fects on color images. IMPRESSION: NO EVIDENCE OF DVT OR SVT IN THE RIGHT LEG. TECHNICAL DOCUMENTATION: JOB ID: [id number] [employer]- All Rights Reserved Reading location - IP/workstation name: [id number]
== END 2017-09-05 13:13 | disposition home or self-care (01) ==
LOC: ER 09:10
DX: M79.604 Pain in right leg (principal); M79.89 Other specified soft tissue disorders; I25.10 Atherosclerotic heart disease of native coronary artery without angina pectoris; E78.00 Pure hypercholesterolemia, unspecified; E11.9 Type 2 diabetes mellitus without complications; Z86.718 Personal history of other venous thrombosis and embolism; Z95.1 Presence of aortocoronary bypass graft; Z96.653 Presence of artificial knee joint, bilateral
CPT/HCPCS: 36415; 80048; 82550; 93971; 99284

== ENCOUNTER 2017-10-17 07:52 | Day surgery (SDC) | payer MEDICARE, OTHER ==
--- NOTE | 2017-10-12 10:09 | RADIOLOGY REPORT (SQ) ---
EXAM DESCRIPTION: CHEST PA/LATERAL COMPLETED DATE/TIME: 10/12/2017 9:59 am REASON FOR STUDY: PRE-OP COMPARISON: 07/04/2017 EXAM PARAMETERS: NUMBER OF VIEWS: two views TECHNIQUE: Digital Frontal and Lateral radiographic views of the chest acquired. RADIATION DOSE: NA LIMITATIONS: none FINDINGS: LUNGS AND PLEURA: No opacities, masses or pneumothorax. No pleural effusion. MEDIASTINUM AND HILAR STRUCTURES: No masses or contour abnormalities. HEART AND VASCULAR STRUCTURES: Heart normal size. No evidence for failure. BONES: No acute findings. HARDWARE: Sternotomy wires are in place. OTHER: No other significant finding. IMPRESSION: NO SIGNIFICANT RADIOGRAPHIC FINDING IN THE CHEST. TECHNICAL DOCUMENTATION: JOB ID: [id number] [employer]- All Rights Reserved Reading location - IP/workstation name: [email or web address]
[2017-10-12 11:12] LABS: APPEARANCE,URINE CLOUDY; BILIRUBIN,URINE NEGATIVE (NEGATIVE); COLOR,URINE YELLOW; GLUCOSE, URINE NEGATIVE (NEGATIVE); KETONES,URINE TRACE mg/dL (NEGATIVE); LEUKOCYTE ESTERASE,URINE NEGATIVE (NEGATIVE); NITRITE,URINE NEGATIVE (NEGATIVE); PROTEIN,URINE NEGATIVE (NEGATIVE); URINE SPECIFIC GRAVITY 1.028
[2017-10-12 11:12] LABS: HEMATOCRIT 41.7 % (37.9-51.0); HEMOGLOBIN 14.1 g/dL (13.5-17.0); MEAN CORPUSCULAR HEMOGLOBIN 31.7 pg (27.0-33.4); MEAN CORPUSCULAR HGB CONC 33.7 g/dL (32.0-36.0); MEAN CORPUSCULAR VOLUME 94 fl (80-97); PLATELET COUNT 220 10^3/uL (150-450); RED BLOOD COUNT 4.44 10^6/uL (4.35-5.55); RED CELL DISTRIBUTION WIDTH 14.2 % (11.5-14.0); WHITE BLOOD COUNT 8.8 10^3/uL (4.0-10.5)
[2017-10-12 11:46] LABS: ANION GAP 13 (5-19); BLOOD UREA NITROGEN 20 mg/dL (7-20); CALCIUM 9.3 mg/dL (8.4-10.2); CARBON DIOXIDE 25 mmol/L (22-30); CHLORIDE 105 mmol/L (98-107); GLUCOSE 113 mg/dL (75-110); POTASSIUM 4.4 mmol/L (3.6-5.0); SODIUM 142.6 mmol/L (137-145)
--- NOTE | 2017-10-12 22:28 | EKG REPORT ---
SEVERITY:- ABNORMAL ECG - SINUS RHYTHM RBBB AND LPFB : Confirmed by: Lizeth Anne 12-Oct-2017 22:27:34
[~2017-10-17 07:52] MED LIST: ACETAMINOPHEN 1,000 MG/100 ML RTUPB IV ONE; BUPIVACAINE HCL 0.5 % INJ/PF 30 ML SDV ONE; CEFAZOLIN 2 GM/D5W RTU 2 GM/50 ML RTUPB IV PRN; DEXAMETHASONE SOD PHOSPHATE INJ 4 MG/1 ML VIAL ONE; FENTANYL CITRATE INJ/PF 100 MCG/2 ML AMPUL ONE; LACTATED RINGERS 1000 ML IV PRN; LIDOCAINE 0.5% INJ-PF (5 MG/ML) 50 ML SDV SUBCUT PRN; LIDOCAINE 2% INJ-PF (20 MG/ML) 10 ML AMPUL ONE; MIDAZOLAM 2 MG/2 ML INJ ONE; ONDANSETRON HCL INJ/PF 4 MG/2 ML SDV ONE; PROPOFOL INJ 200 MG/20 ML VIAL IV ONE
[2017-10-17] MEDS ORDERED: MORPHINE SULFATE 10 MG/ML INJ IV PRN ×2 (10:49→11:15)
[2017-10-17] MEDS ORDERED: FENTANYL CITRATE INJ/PF 100 MCG/2 ML AMPUL IV PRN ×3 (10:49)
[2017-10-17] MEDS ORDERED: DIPHENHYDRAMINE HCL 50 MG/ML VIAL IV PRN (10:49)
[2017-10-17] MEDS ORDERED: PROMETHAZINE HCL INJ 25 MG/1 ML VIAL IV PRN ×2 (10:49)
[2017-10-17] MEDS ORDERED: ONDANSETRON HCL INJ/PF 4 MG/2 ML SDV IV PRN ×2 (10:49→11:15)
[2017-10-17] MEDS ORDERED: MEPERIDINE HCL/PF INJ 25 MG/1 ML DISP.SYRIN IV PRN (10:49)
[2017-10-17] MEDS ORDERED: OXYCODONE-ACETAMINOPHEN 5-325 MG TABLET PO PRN (11:15)
--- NOTE | 2017-10-17 11:16 | Discharge Summary ---
Discharge Summary (SDC) - Discharge Final Diagnosis: Recurrent carpal tunnel syndrome Date of Surgery: 10/17/17 Discharge Date: 10/17/17 Condition: Good Treatment or Instructions: Schedule Follow Up w/ Dr. Yogesh Fuentes @ [facility] to be seen in 10-14 days or as scheduled [place]: [place]: [place]: Ice and elevate Keep splint clean/dry/intact. If your fingers become numb please unwrap the Homero wrap but leave the splint in place, if the sensation does not return within 30 minutes please return to the emergency department. May begin finger range of motion attempting to make full fist. Please be aware that many medications contain acetaminophen, do not exceed a total of 1000 mg of acetaminophen every 6 hours. Stool softener of choice when on pain medication. Prescriptions: Oxycodone HCl/Acetaminophen [Percocet 5-325 mg Tablet] 1 tab PO Q6 #25 tab Referrals: SNEHA GREGORY MD [Primary Care Provider] - Discharge Diet: As Tolerated Respiratory Treatments at Home: Deep Breathing/Coughing, Incentive Spirometer Discharge Activity: No Lifting Over 10 Pounds, No Lifting/Push/Pulling Report the Following to Your Physician Immediately: Fever over 101 Degrees, Unusual Bleeding, Redness, Swelling, Warmth
--- NOTE | 2017-10-17 11:22 | Operative Report ---
Operative Report DATE OF SURGERY: 10/17/17 PREOPERATIVE DIAGNOSIS: Right recurrent carpal tunnel syndrome POSTOPERATIVE DIAGNOSIS: Same OPERATION: Revision right carpal tunnel release with hypo-thenar fat pad transfer, Axogen nerve wrap SURGEON: TREVOR TAYLOR ANESTHESIA: GA COMPLICATIONS: None ESTIMATED BLOOD LOSS: Minimal PROCEDURE: Indication for above procedure: 71-year-old man with history of right carpal tunnel release that was done an outside facility years ago. Patient initially did well but then developed recurrent symptoms with numbness tingling and significant burning. We attempted injections on multiple occasions which did provide short but not long- term relief. At that point we discussed treatment options including operative versus nonoperative intervention. Risks and benefits were explained patient verbalized understanding consented for the procedure. Procedure In Detail: Patient was seen and evaluated in the preoperative holding area. The RIGHT upper extremity was initialized and marked. Patient received 2g of Ancef IV for bacterial prophylaxis. Patient was taken back to the operative room where transferred to the operative table and placed under general anesthesia. Once they were adequately anesthetized a nonsterile tourniquet was placed on the upper extremity. A surgical team debriefing was performed ensuring all instrumentation was available, the surgical procedure was discussed with possible concerns reviewed. The upper extremity was prepped with chlorhexidine and alcohol and draped in a sterile fashion. A timeout was done identifying correct patient, procedure and extremity everyone in attendance agree with this and verbalized no concerns. The extremity was exsanguinated the tourniquet was inflated to 250 mmHg. Previous skin incision was utilized and extended distally 1 cm and proximally past the wrist flexion crease and approximately 2 cm proximal to the previous incision. Blunt dissection was performed. Normal-appearing tissue approximate was identified including the median nerve. The palmar cutaneous branch of the median nerve was also identified at this level and protected. Blunt dissection was performed from a proximal to distal direction at the level of the wrist flexion crease there was significant scarring of the median nerve to the volar antebrachial fascia and the radial leaflet of the transverse carpal ligament. There is significant hyperemia and hourglass deformation of the median nerve at this level. Scar tissue was further released in a distal direction until the median nerve was relieved of compression. The first second and third webspace sensory branches and recurrent motor branch were identified and freed of any overlying soft tissue. The median nerve was then bluntly dissected from the undersurface of the transverse carpal ligament radial leaflet. Once the nerve was released proximally and distally the epineurium was dissected and a internal neural lysis performed to relieve any residual compression. Once the median nerve was adequately released proximally and distally attention turned to the hypo-thenar fat pad graft. The hypothenar fat was carefully elevated off the ulnar skin leaving adipose remaining to the subcutaneous tissues to avoid necrosis. This was dissected to the insertion of the palmaris brevis once adequate excursion of the adipose was obtained dissection receded in a dorsal direction. Branches of the ulnar artery and ulnar nerve were identified and protected. Arterial branches to the fat pad from the ulnar artery were identified and utilized as a pedicle. The ulnar leaflet of the transverse carpal ligament was excised and the fat pad carefully elevated to allow excursion for adequate coverage to the median nerve. Given the significant amount of scarring decision was made to place a Axogen nerve wrap. A 10 mm x 40 mm nerve wrap was then placed at the area of maximal compression circumferentially. This was secured with interrupted 6-0 nylon horizontal mattress suture. Once secured a [place] elevator was placed to ensure adequate fit without overt compression. The hypo-thenar fat was then secured to the undersurface of the radial leaflet with horizontal mattress 3-0 Vicryl to adequately provide coverage to the volar surface of the median nerve. The wound was then copiously irrigated with normal saline and tourniquet deflated. Any peripheral bleeding was coagulated bipolar cautery until the wound was dry. Subcutaneous tissues were closed with 4-0 Monocryl suture. Skin was closed with interrupted horizontal mattress in a running horizontal mattress 4-0 nylon suture. 30 cc of 0.5% Marcaine without epinephrine was injected for postoperative pain control. Wound was dressed with Xeroform 4 x 4' s and a volar resting splint placed. Sponge counts, instrument counts, needle counts counts were correct. Patient was then awoken from anesthesia. Transferred from the operating room table to the operating room stretcher. There was no intraoperative complications patient tolerated procedure well stable to PACU. Postoperative plan: Patient will follow-up the office in 2 weeks at which point we will proceed with suture removal and patient will begin range of motion and start occupational therapy.
[2017-10-17 13:15] VITALS: BP 120/72
== END 2017-10-17 13:00 | disposition home or self-care (01) ==
LOC: OROUT 07:52
PROVIDERS: ATTEND Orthopaedic Surgery
DX: G56.03 Carpal tunnel syndrome, bilateral upper limbs (principal); S52.532D Colles' fracture of left radius, subsequent encounter for closed fracture with routine healing; X58.XXXD Exposure to other specified factors, subsequent encounter; M19.90 Unspecified osteoarthritis, unspecified site; R73.03 Prediabetes; I25.10 Atherosclerotic heart disease of native coronary artery without angina pectoris; Z79.01 Long term (current) use of anticoagulants; Z79.899 Other long term (current) drug therapy; Z79.82 Long term (current) use of aspirin
CPT/HCPCS: 93005; 36415; 85027; 80048; 81001; 71046; 93010; 14040; 64999; C9353; J2250; J3490 ×2; J1100; J3010; A9270; J2405; J2704; J0690; J0131; 1810